=== PATIENT | male | born 1985 | race African-American/Black ===

== ENCOUNTER 2019-04-24 10:34 | Emergency (ER) | payer OTHER ==
[2019-04-24 13:00] VITALS: BP 143/96
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
== END 2019-04-24 12:59 | disposition home or self-care (01) ==
LOC: ED 10:34
DX: S01.112A Laceration without foreign body of left eyelid and periocular area, initial encounter (principal); T16.1XXA Foreign body in right ear, initial encounter; Y04.8XXA Assault by other bodily force, initial encounter
CPT/HCPCS: 12011; 99282